=== PATIENT | female | born 1995 | race Caucasian/White ===

== ENCOUNTER 2021-10-21 15:55 | Emergency (ER) | payer OTHER ==
[~2021-10-21] VITALS: Ht 170.2 cm; Wt 100.0 kg
[2021-10-21 17:15] VITALS: BP 109/75
[2021-10-21 19:30] LABS: URINE BILIRUBIN - DIPSTICK NEGATIVE (NEGATIVE); URINE BLOOD DIPSTICK TRACE-INTACT (NEGATIVE); URINE COLOR YELLOW; URINE GLUCOSE - DIPSTICK NEGATIVE (NEGATIVE); URINE KETONE 15 mg/dL (NEGATIVE); URINE LEUK ESTERASE TRACE (NEGATIVE); URINE PROTEIN - DIPSTICK NEGATIVE (NEG-TRACE); URINE SPECIFIC GRAVITY >=1.030; URINE UROBILINOGEN - DIPSTICK 0.2 E.U./dL (0.2)
[2021-10-21 19:33] LABS: URINE NITRITE - DIPSTICK NEGATIVE (Negative)
[2021-10-21] MEDS ORDERED: FLEXERIL5 M1 PO (20:37)
[2021-10-21] MEDS ORDERED: IBUPROFEN600 MG PO (20:37)
== END 2021-10-21 21:00 | disposition home or self-care (01) | DRG 552 ==
LOC: ED 15:55
PROVIDERS: Emergency Medicine
DX: S16.1XXA Strain of muscle, fascia and tendon at neck level, initial encounter (principal); S39.012A Strain of muscle, fascia and tendon of lower back, initial encounter; S80.01XA Contusion of right knee, initial encounter; W19.XXXA Unspecified fall, initial encounter; Y99.0 Civilian activity done for income or pay